=== PATIENT | male | born 1990 | race Caucasian/White ===

== ENCOUNTER 2019-07-11 18:10 | Emergency (ER) | payer OTHER, SELFPAY ==
[2019-07-11] MEDS ORDERED: Lidocaine 1% (PF) 30 ML VIAL ONE ×2 (18:40→19:06)
--- NOTE | 2019-07-11 18:50 | RAD ---
Exam:4 views left HISTORY: Pain. Laceration. COMPARISON: None FINDINGS: Infrapatellar soft tissue laceration. Overlying bandage material. No definite radiopaque fo reign body. Joint spaces are preserved. No joint effusion or fracture. IMPRESSION: 1. Soft tissue injury without evidence of radiopaque foreign body.
[2019-07-11] MEDS ORDERED: Adacel (T-DAP) 0.5 ML SYRINGE ONE (19:38)
[2019-07-11] MEDS ORDERED: Bacitracin 1 PK ONE (19:50)
== END 2019-07-11 20:02 ==
LOC: NAV ERS 18:10
DX: S81.812A Laceration without foreign body, left lower leg, initial encounter (principal); M19.90 Unspecified osteoarthritis, unspecified site; F17.210 Nicotine dependence, cigarettes, uncomplicated; Z23 Encounter for immunization; W29.8XXA Contact with other powered hand tools and household machinery, initial encounter
CPT/HCPCS: 12004; 90471; 90715; J2001